=== PATIENT | male | born 1985 | race Hispanic/Latino ===

== ENCOUNTER 2021-05-05 10:20 | Emergency (ER) | payer SELFPAY ==
[~2021-05-05] VITALS: Ht 180.3 cm; Wt 83.9 kg
[2021-05-05] MEDS ORDERED: ZOFRAN4 MG PO (12:53)
[2021-05-05] MEDS ORDERED: PRILOSEC OTC20 MG PO (12:53)
== END 2021-05-05 13:13 | disposition home or self-care (01) ==
LOC: ED 10:20
DX: R10.13 Epigastric pain (principal); R11.10 Vomiting, unspecified
CPT/HCPCS: 80053; 81001; 83690; 83735; 85025; 96361; 96374; 96375; 99284-25; J1885; J2405; J7030